=== PATIENT | male | born 1955 | race Caucasian/White ===

== ENCOUNTER 2016-08-07 17:46 | Emergency (ER) | payer MEDICARE, MEDICAID ==
[2016-08-07 18:02] VITALS: BP 145/116
[2016-08-07] MEDS ORDERED: Benzoin Compound STICK TOPICAL ONE (19:25)
--- NOTE | 2016-08-07 19:25 | UC ---
Laceration HPI - HPI Summary HPI Summary: hit the right side of his head on a wall wheile propelling his wheelchair to close to a corner--laceration above right eye brow - History Of Current Complaint Chief Complaint: UCLaceration Stated Complaint: HEAD INJURY Time Seen by Provider: 08/07/16 19:17 Hx Obtained From: Patient Hx From Patient Unobtainable Due To: Altered Mental Status - Cerebral PAlsey, profound MR Laceration Location: Face - above right eye brow Mechanism Of Injury: Blunt Trauma Onset/Duration: Sudden Onset, Lasting Days Severity: Mild - Allergies/Home Medications Allergies/Adverse Reactions: Allergies Allergy/AdvReac Type Severity Reaction Status Date / Time No Known Allergies Allergy Verified 08/07/16 18:02 PMH/Surg Hx/FS Hx/Imm Hx Previously Healthy: No - cerebral palsey, profound MR Endocrine History Of: Denies: Diabetes, Thyroid Disease, Hyperthyroidism, Hypothyroidism Cardiovascular History Of: Reports: Hypertension Denies: Cardiac Disorders, Pacemaker/ICD, Congestive Heart Failure, Deep Vein Thrombosis Respiratory History Of: Reports: Pneumonia Denies: COPD, Asthma, Pulmonary Embolism GI/ History Of: Denies: Gastroesophageal Reflux, Ulcer, Renal Disease Neurological History Of: Reports: Seizures - has about one major seizure per month Denies: TIA, CVA, Dementia, Migraine Psychological History Of: Denies: Anxiety, Depression, Bipolar Disorder, Schizophrenia Cancer History Of: Denies: Lung Cancer Other History Of: Negative For: Anticoagulant Therapy - Surgical History Surgical History: Yes Surgery Procedure, Year, and Place: abdominal surgery listed in pt record from [facility], no date, no place, no specific procedure listed - Family History Known Family History: Positive: None Family History: family history unkniwn PATIENT LIVES IN HOME FOR DD ADULTS - Social History Occupation: Disabled Lives: Assisted Living Alcohol Use: None Substance Use Type: None Smoking Status (MU): Never Smoked Tobacco - Immunization History Most Recent Influenza Vaccination: 2014 Most Recent Tetanus Shot: 10/07/08 Most Recent Pneumonia Vaccination: NEVER Review of Systems Constitutional: Negative Skin: Negative - cm laceration above right eye brown minimal oo, Other Eyes: Negative ENT: Negative Respiratory: Negative Cardiovascular: Negative Gastrointestinal: Negative Genitourinary: Negative Motor: Negative Neurovascular: Negative Musculoskeletal: Negative Neurological: Negative Psychological: Negative All Other Systems Reviewed And Are Negative: Yes Physical Exam Triage Information Reviewed: Yes Completion Of Physical Exam Limited Due To: Patient is uncooperative with exam Appearance: No Pain Distress, Ill-Appearing - chronic, Thin Vital Signs: Initial Vital Signs Temp 98.6 F 08/07/16 17:56 Pulse 72 08/07/16 17:56 Resp 18 08/07/16 17:56 BP 145/116 08/07/16 17:56 Pulse Ox 97 08/07/16 17:56 Vital Signs Reviewed: Yes Eye Exam: Normal Eyes: Positive: Conjunctiva Clear ENT Exam: Normal ENT: Positive: Normal ENT inspection, Hearing grossly normal, Pharynx normal, TMs normal. Negative: Nasal congestion, Nasal drainage, Tonsillar swelling, Tonsillar exudate, Trismus, Muffled/hoarse voice Neck exam: Normal Neck: Positive: Supple, Nontender, No Lymphadenopathy Respiratory Exam: Normal Respiratory: Positive: Chest non-tender, Lungs clear, Normal breath sounds, No respiratory distress, No accessory muscle use Cardiovascular Exam: Normal Cardiovascular: Positive: RRR, No Murmur, Pulses Normal, Brisk Capillary Refill Musculoskeletal Exam: Normal Musculoskeletal: Positive: Strength Intact, ROM Intact, No Edema Neurological Exam: Normal Neurological: Positive: Alert, Muscle Tone Normal - 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 Psychological Exam: Normal Skin Exam: Normal Skin: Positive: Other - 1 cm laceration above right eye brow Laceration Repair - Laceration Repair 1 Description: Linear Laceration Size After Repair: Length (cm) - 1 Modified For Repair: No Cleansing Completed Via Routine Prep: Yes Irrigation With Pressure Irrigation Device: Yes Closure Material: SteriStrips Re-Evaluation - Re-Evaluation First Eval Change: Improved - well approximated patient tolerated well Laceration Course/Dx - Course/Dx Course Of Treatment: follow blood pressure with pcp, allow steri strips to fall off on their own accourd re-check prn - Differential Dx - Laceration/Wound Differental Diagnoses: Hematoma, Laceration Provider Diagnoses: hemotoma, laceration about right eyebrom with excellent appromimation, follow with pcp re-cjheck prn Discharge - Discharge Plan Condition: Stable Disposition: HOME Patient Education Materials: Hypertension (ED), Steristrips (ED), Facial Laceration (ED) Referrals: Toño CONTRERAS,Darin Turner [Primary Care Provider] - 1 Week Additional Instructions: Tub bath only for 5 days avoid getting steri strips wet if possible
== END 2016-08-07 19:58 | disposition home or self-care (01) ==
LOC: UCEAST 17:46
DX: S01.111A Laceration without foreign body of right eyelid and periocular area, initial encounter (principal); W22.09XA Striking against other stationary object, initial encounter
CPT/HCPCS: 12001; 99211; G0463

== ENCOUNTER 2016-09-29 08:25 | Emergency (ER) | payer MEDICARE, MEDICAID ==
[2016-09-29 08:41] VITALS: BP 96/60
--- NOTE | 2016-09-29 09:25 | UC ---
Respiratory Complaint HPI - History of Current Complaint Chief Complaint: UCRespiratory Stated Complaint: RESP COMPLAINT Hx Obtained From: Family/Leather Shaver Hx From Patient Unobtainable Due To: Other - MR, disable Onset/Duration: Gradual Onset - choked on milk few days ago and has been coughing since. worse sometimes than others. caregiver is good historian for patient-has cared for him a long time. states he can swallow pills (all at once) , but is refusing food since yesterday. had fever 99 at house. Severity Initially: Mild Severity Currently: Moderate Character: Cough: Nonproductive Aggravating Factors: Recumbent Position Associated Signs And Symptoms: Positive: Fever. Negative: Wheezing, Hemoptysis , Nasal Congestion - Allergies/Home Medications Allergies/Adverse Reactions: Allergies Allergy/AdvReac Type Severity Reaction Status Date / Time No Known Allergies Allergy Verified 09/29/16 08:41 Home Medications: Home Medications Guaifenesin [Tussin Mucus & Chest Saad] 100 mg PO PRN 09/29/16 [History] PMH/Surg Hx/FS Hx/Imm Hx Previously Healthy: Yes Cardiovascular History: Hypertension Respiratory History: Other - aspiration pneumonia mult times Other Respiratory History: aspiration pneumonia Neurological History: Seizures, Other - MR Other Neurological History: MR Other History Of: Negative For: Anticoagulant Therapy - Surgical History Surgical History: Yes Surgery Procedure, Year, and Place: abdominal surgery listed in pt record from [facility], no date, no place, no specific procedure listed - Family History Known Family History: Positive: None Family History: family history unkniwn PATIENT LIVES IN HOME FOR DD ADULTS - Social History Alcohol Use: None Substance Use Type: None Smoking Status (MU): Never Smoked Tobacco - Immunization History Most Recent Influenza Vaccination: 2014 Most Recent Tetanus Shot: 10/07/08 Most Recent Pneumonia Vaccination: NEVER Review of Systems Constitutional: Fever Skin: Negative Respiratory: Cough Cardiovascular: Negative Gastrointestinal: Negative Neurological: Other - seems more tired Psychological: Negative All Other Systems Reviewed And Are Negative: Yes Physical Exam Triage Information Reviewed: Yes Completion Of Physical Exam Limited Due To: Other - MR, disabled, non-verbal Appearance: Well-Appearing, No Pain Distress, Well-Nourished Vital Signs: Initial Vital Signs Temp 97.2 F 09/29/16 08:29 Pulse 80 09/29/16 08:29 Resp 18 09/29/16 08:29 BP 96/60 09/29/16 08:29 Pulse Ox 97 09/29/16 08:29 ENT: Positive: Pharynx normal, Other: - no F/B in OP Respiratory: Positive: Lungs clear, Normal breath sounds, No respiratory distress, Other: - diff exam as pt will not take a deep breath Cardiovascular Exam: Normal Abdomen Description: Positive: Nontender Psychological: Positive: Other: - metal spray operator 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 for pt UC Diagnostic Evaluation - Laboratory O2 Sat by Pulse Oximetry: 97 Respiratory Course/Dx - Differential Dx/Diagnosis Differential Diagnosis/HQI/PQRI: Airway Obstruction, Foreign Body, Aspiration, Lower Resp Infection, Other - URI Provider Diagnoses: aspiration pneumonia Discharge - Discharge Plan Condition: Stable Disposition: HOME Prescriptions: Ciprofloxacin TAB* [Cipro 500 MG TAB*] 500 mg PO BID #20 tab Patient Education Materials: Pneumonia (ED) Referrals: Toño CONTRERAS,Darin Turner [Primary Care Provider] - 2 Days (recheck breathing) Additional Instructions: encourage clear fluids report to ER if breathing worsens or other symptoms occur
[2016-09-29] MEDS ORDERED: Ciprofloxacin TAB* 500 MG PO ONE (09:31)
== END 2016-09-29 09:50 | disposition home or self-care (01) ==
LOC: UCEAST 08:25
DX: J69.0 Pneumonitis due to inhalation of food and vomit (principal); T17.928A Food in respiratory tract, part unspecified causing other injury, initial encounter; X58.XXXA Exposure to other specified factors, initial encounter; Y93.89 Activity, other specified; Y92.199 Unspecified place in other specified residential institution as the place of occurrence of the external cause; Y99.9 Unspecified external cause status; I10 Essential (primary) hypertension
CPT/HCPCS: 99212; A9270-GY; G0463

== ENCOUNTER 2016-10-02 11:41 | Emergency (ER) | payer MEDICARE, MEDICAID ==
[2016-10-02 11:48] VITALS: BP 124/77
--- NOTE | 2016-10-02 13:24 | UC ---
Complaint Male HPI - HPI Summary HPI Summary: This is a 61 yo gentleman with severe MR, sz d/o and cerebral palsy who presented with blood at the tip of his urethra. This was first noted this am. No recent fever. No c/os of abd pain or vomiting. No changes in behavior. Patient is incontinent of urine at baseline, no recent catheterizations completed. He was recently seen and treated for PNA and is currently being treated with Cipro. - History of Current Complaint Chief Complaint: UCGU Stated Complaint: PERSONAL - Allergies/Home Medications Allergies/Adverse Reactions: Allergies Allergy/AdvReac Type Severity Reaction Status Date / Time No Known Allergies Allergy Verified 09/29/16 08:41 PMH/Surg Hx/FS Hx/Imm Hx Previously Healthy: No - CP, sz d/o, profound MR Other History Of: Negative For: Anticoagulant Therapy - Surgical History Surgical History: Yes Surgery Procedure, Year, and Place: abdominal surgery listed in pt record from [facility], no date, no place, no specific procedure listed - Family History Known Family History: Positive: None Family History: family history unkniwn PATIENT LIVES IN HOME FOR DD ADULTS - Social History Alcohol Use: None Substance Use Type: None Smoking Status (MU): Never Smoked Tobacco - Immunization History Most Recent Influenza Vaccination: 2014 Most Recent Tetanus Shot: 10/07/08 Most Recent Pneumonia Vaccination: NEVER Review of Systems Constitutional: Negative Skin: Negative Eyes: Negative ENT: Negative Respiratory: Negative Cardiovascular: Negative Gastrointestinal: Negative Genitourinary: Hematuria Motor: Negative Neurovascular: Negative Musculoskeletal: Negative Neurological: Negative Psychological: Negative All Other Systems Reviewed And Are Negative: Yes Physical Exam Triage Information Reviewed: Yes Completion Of Physical Exam Limited Due To: Altered Mental Status - profound MR , alert, but non-verbal Vital Signs: Initial Vital Signs Temp 97.8 F 10/02/16 11:43 Pulse 56 10/02/16 11:43 Resp 15 10/02/16 11:43 BP 124/77 10/02/16 11:43 Pulse Ox 99 10/02/16 11:43 Respiratory: Positive: Chest non-tender, Lungs clear Cardiovascular: Positive: RRR, No Murmur Abdomen Description: Positive: Nontender, Soft. Negative: CVA Tenderness (R), CVA Tenderness (L) - Additional Comments Circusized penis with large uretheral opening. Pooled, dark blood at the tip of the urethera, no clear injury noted. No surrounding lesions or ecchymosis. Non tender with manipulation. Complaint Male Course/Dx - Course Course Of Treatment: This is a 61 yo male with profound MR, sz d/o and profound MR who presented with c/o uretheral bleeding. This does not appear to be true hematuria, catherization avoided as source appeared to be within the urethera. No recent catheterizations or other manipulation to explain symptoms. Normal urine output. Recommend monitoring, he is already on Cipro that would cover most urine pathogens. Consider uretheral lesion if no recent trauma. If bleeding continues then scope with urology is the appropriate next step. - Differential Dx/Diagnosis Differential Diagnosis/HQI/PQRI: Cancer, Prostatitis, Urinary Tract Infection Provider Diagnoses: 1. Uretheral bleeding of unclear etiology Discharge - Discharge Plan Condition: Stable Disposition: HOME Patient Education Materials: Hematuria (ED) Referrals: Toño CONTRERAS,Darin Turner [Primary Care Provider] - If Needed Additional Instructions: Activity: As tolerated Instructions: 1. Monitor for continued bleeding 2. Monitor for decreased urine output that may indicate a clot 3. If bleeding continues, recommend urology consultation
== END 2016-10-02 13:21 | disposition home or self-care (01) ==
LOC: UCEAST 11:41
DX: N36.8 Other specified disorders of urethra (principal); G40.909 Epilepsy, unspecified, not intractable, without status epilepticus; G80.9 Cerebral palsy, unspecified; F73 Profound intellectual disabilities
CPT/HCPCS: 99212; G0463

== ENCOUNTER 2017-10-05 12:53 | Emergency (ER) | payer MEDICARE, MEDICAID ==
[2017-10-05 13:29] LABS: ABS Basophils 0 10^3/ul (0-0.2); ABS Eosinophils 0.3 10^3/ul (0-0.6); ABS Monocytes 0.4 10^3/ul (0-0.8); ABS Neutrophils 2.3 10^3/ul (1.5-7.7); ABS Nucleated RBC 0 10^3/ul; Eosinophil % 7.3 % (0-6); Hematocrit 39 % (42-52); Hemoglobin 13.2 g/dl (14.0-18.0); Mean Corpuscular HGB Conc 34 g/dl (31-36); Mean Corpuscular Hemoglobin 31 pg (27-31); Mean Corpuscular Volume 93 fL (80-94); Mean Platelet Volume 7.1 um3 (7.4-10.4); Nucleated Red Blood Cells % 0.1; Platelet Count 261 10^3/ul (150-450); Red Blood Count 4.23 10^6/ul (4.00-5.40); Red Cell Distribution Width 13 % (10.5-15); White Blood Count 4.1 10^3/ul (3.5-10.8)
[2017-10-05 13:46] LABS: EGFR Non-African American 91.6 (>60)
--- NOTE | 2017-10-05 13:47 | ED ---
Neurological HPI - HPI Summary HPI Summary: This is danny Garduno documenting for attending Cindy Healy MD. LEVEL 5 CAVEAT The patient is non-verbal and is currently sleeping. The caregiver at bedside reports he usually sleeps for hours after his seizures. This patient is a 62 year old M BIBA to ED with a chief complaint of 2 grand mal seizures since earlier today. He usually gets seizures once a month but had 3 this week so far; the third one occurred a couple days ago. He is on medication for his seizures. These episodes today were witnessed but not by the caregiver currently at bedside. The CC is described as lasting longer than usual and unusually violent from baseline. The patient rates the pain 0/10 in severity. Symptoms aggravated by nothing. Symptoms alleviated by spontaneous resolution. Caregiver reports difficulty breathing s/p seizures and unusually low BP. - History of Current Complaint Chief Complaint: EDSeizure Stated Complaint: SEIZURES Time Seen by Provider: 10/05/17 13:06 Hx Obtained From: Patient Hx From Patient Unobtainable Due To: Other - patient is currently sleeping; caregiver reports he usually sleeps for hours after seizure episodes; patient at baseline is active but non-verbal Onset/Duration: Sudden Onset, Started hours ago, Resolved Timing: Intermittent Episodes Lasting: - longer than usual; usually only has one a month, but has had 3 this week so far, two of which happened today Current Severity: None Number of Seizures: 2 - today, 1 earlier this week Pain Intensity: 0 Pain Scale Used: 0-10 Numeric Character: Other: - more violent than usual, lasted longer than usual Aggravating: Nothing Alleviating: Spontanious Resolution Associated Signs and Symptoms: Positive: Seizure - Caregiver reports difficulty breathing s/p seizures and unusually low BP. - Allergy/Home Medications Allergies/Adverse Reactions: Allergies Allergy/AdvReac Type Severity Reaction Status Date / Time No Known Allergies Allergy Verified 10/05/17 13:00 Home Medications: Home Medications Ammonium Lactate 12 % EX BID PRN 10/05/17 [History Confirmed 10/05/17] Aspirin EC TAB* [Ecotrin EC Low Dose 81 MG*] 81 mg PO DAILY 10/05/17 [History Confirmed 10/05/17] Bisacodyl SUPP* [Dulcolax Supp*] 10 mg .SEE ORDER PRN 10/05/17 [History] Carbamide Peroxide 6.5% OTIC* [DEBROX 6.5% Otic*] 5 drop BOTH EARS SEE INSTRUCTIONS 10/05/17 [History Confirmed 10/05/17] Clobetasol 0.05% OINT* 1 applic TOPICAL BID 10/05/17 [History Confirmed 10/05/17 ] Neomycin/Bacitracin/Polymyxinb [Triple Antibiotic Ointment] 1 each TOPICAL BID PRN 10/05/17 [History Confirmed 10/05/17] PHENobarbital TAB(*) 90 mg PO BEDTIME 10/05/17 [History Confirmed 10/05/17] Xanthan Gum [Simplythick] 1,815 gm PO DAILY PRN 10/05/17 [History Confirmed ] Zinc Oxide [Desitin] 13 % EX BID PRN 10/05/17 [History Confirmed 10/05/17] carBAMazepine ER TAB(*) [TEGretol Xr TAB(*)] 600 mg PO BID 10/05/17 [History Confirmed 10/05/17] PMH/Surg Hx/FS Hx/Imm Hx Endocrine/Hematology History: Denies: Hx Anticoagulant Therapy, Hx Diabetes, Hx Thyroid Disease, Hx Anemia , Hx Unexplained Bleeding Cardiovascular History: Reports: Hx Hypertension Denies: Hx Aneurysm, Hx Angina, Hx Angioplasty, Hx Auto Implanted Cardiovert Defib, Hx Cardiac Arrest, Hx Cardiomegaly, Hx Congenital Heart Disease, Hx Congestive Heart Failure, Hx Coronary Artery Disease, Hx Deep Vein Thrombosis, Hx Hypercholesterolemia, Hx Hypotension, Hx Pacemaker/ICD, Hx Peripheral Vascular Disease, Hx Rheumatic Fever, Hx Syncope, Hx Valvular Heart Disease Respiratory History: Reports: Hx Pneumonia Denies: Hx Asthma, Hx Chronic Bronchitis, Hx Chronic Obstructive Pulmonary Disease (COPD), Hx Cystic Fibrosis, Hx Lung Cancer, Hx Pleural Effusion, Hx Pulmonary Edema, Hx Pulmonary Embolism, Hx Seasonal Allergies, Hx Sleep Apnea, Other Respiratory Problems/Disorders GI History: Reports: Other GI Disorders - hx of aspiration pneumonia Denies: Hx Ulcer History: Denies: Hx Renal Disease Musculoskeletal History: Reports: Other Musculoskeletal History - CEREBRAL PALSY Denies: Hx Arthritis, Hx Back Problems, Hx Bursitis, Hx Congenital Bone Abnormalities, Hx Fibromyalgia, Hx Gout, Hx Orthopedic Injury, Hx Osteoporosis, Hx Scoliosis, Hx Tendonitis Sensory History: Denies: Hx Cataracts, Hx Contacts or Glasses, Hx Eye Injury, Hx Eye Prosthesis, Hx Glaucoma, Hx Macular Degeneration, Hx Vision Problem, Hx Deafness , Hx Hearing Aid, Hx Hearing Problem, Other Sensory Impairments Opthamlomology History: Denies: Hx Cataracts, Hx Contacts or Glasses, Hx Eye Injury, Hx Eye Prosthesis, Hx Glaucoma, Hx Macular Degeneration, Hx Vision Problem, Other Sensory Impairments Neurological History: Reports: Hx Developmental Delay - PROFOUND MR, CEREBRAL PALSY, Hx Seizures - has about one major seizure per month, Other Neuro Impairments/Disorders - CEREBRAL PALSY Denies: Hx Dementia, Hx Headaches, Hx Migraine, Hx Spinal Cord Injury, Hx Transient Ischemic Attacks (TIA) Psychiatric History: Reports: Other Psychiatric Issues/Disorders - profound mental retardation Denies: Hx Anxiety, Hx Attention Deficit Hyperactivity Disorder, Hx Eating Disorder, Hx Depression, Hx Panic Disorder, Hx Post Traumatic Stress Disorder, Hx Inpatient Treatment, Hx Community Mental Health Tx, Hx Schizophrenia, Hx Bipolar Disorder, Hx Suicide Attempt, Hx Substance Abuse - Surgical History Surgery Procedure, Year, and Place: abdominal surgery listed in pt record [facility], no date, no place, no specific procedure listed Hx Anesthesia Reactions: No - Immunization History Date of Tetanus Vaccine: 10/07/2008 Date of Influenza Vaccine: 01/04/2011 Infectious Disease History: Unable to Obtain/Confirm Infectious Disease History: Denies: Hx Clostridium Difficile, Hx Hepatitis, Hx Human Immunodeficiency Virus (HIV), Hx of Known/Suspected MRSA, Hx Shingles, Hx Tuberculosis, Hx Known/ Suspected VRE, Hx Known/Suspected VRSA, History Other Infectious Disease, Traveled Outside the in Last 30 Days - Family History Known Family History: Positive: Other Family History: family history unkniwn PATIENT LIVES IN HOME FOR DD ADULTS - Social History Alcohol Use: None Substance Use Type: Reports: None Smoking Status (MU): Never Smoked Tobacco Review of Systems Positive: Other - unusually low BP Positive: Other - Caregiver reports difficulty breathing s/p seizures Neurological: Other - 2 seizures today, 1 earlier this week, unusually violent and longer than usual; the patient is currently sleeping All Other Systems Reviewed And Are Negative: No Physical Exam - Summary Physical Exam Summary: GENERAL: Patient is a well-developed and nourished MALE who is lying comfortable in the stretcher. Patient is not in any acute respiratory distress. The patient is currently sleeping; caregiver reports he usually sleeps for hours after seizure episodes. HEAD AND FACE: Normocephalic EYES: PERRLA, EOMI x 2. EARS: Hearing grossly intact. MOUTH: Oropharynx within normal limits. NECK: Supple, trachea is midline, no adenopathy, no JVD, no carotid bruit. CHEST: Symmetric, no tenderness at palpation LUNGS: Clear to auscultation bilaterally. No wheezing or crackles. CVS: Regular rate and rhythm, S1 and S2 present, no murmurs or gallops appreciated. ABDOMEN: Soft, non-tender. Bowel sounds are normal. No abdominal abnormal pulsations. EXTREMITIES: Full ROM in all major joints, no edema, no cyanosis or clubbing. NEURO: Hard to assess because he is asleep. SKIN: Dry and warm Triage Information Reviewed: Yes Vital Signs On Initial Exam: Initial Vitals Temp Pulse Resp BP Pulse Ox 98.7 F 83 14 98/73 95 10/05/17 12:56 10/05/17 12:56 10/05/17 12:56 10/05/17 12:56 10/05/17 12:56 Vital Signs Reviewed: Yes Completion Of Physical Exam Limited Due To: Level 5 - patient is currently sleeping; caregiver reports he usually sleeps for hours after seizure episodes; patient at baseline is active but non-verbal Diagnostics - Vital Signs Vital Signs Temp Pulse Resp BP Pulse Ox 10/05/17 13:00 86 12 95 10/05/17 12:58 83 14 98/73 95 10/05/17 12:57 86 13 94 10/05/17 12:56 98.7 F 83 14 98/73 95 - Laboratory Lab Results: Lab Results 10/05/17 Range/Units 13:19 WBC 4.1 (3.5-10.8) 10^3/ul RBC 4.23 (4.00-5.40) 10^6/ul Hgb 13.2 L (14.0-18.0) g/dl Hct 39 L (42-52) % MCV 93 (80-94) fL MCH 31 (27-31) pg MCHC 34 (31-36) g/dl RDW 13 (10.5-15) % Plt Count 261 (150-450) 10^3/ul MPV 7.1 L (7.4-10.4) um3 Neut % (Auto) 56.2 (38-83) % Lymph % (Auto) 25.0 (25-47) % Morrow % (Auto) 10.4 H (0-7) % Eos % (Auto) 7.3 H (0-6) % Baso % (Auto) 1.1 (0-2) % Absolute Neuts (auto) 2.3 (1.5-7.7) 10^3/ul Absolute Lymphs (auto) 1.0 (1.0-4.8) 10^3/ul Absolute Monos (auto) 0.4 (0-0.8) 10^3/ul Absolute Eos (auto) 0.3 (0-0.6) 10^3/ul Absolute Basos (auto) 0 (0-0.2) 10^3/ul Absolute Nucleated RBC 0 10^3/ul Nucleated RBC % 0.1 Result Diagrams: 10/05/17 13:19 10/05/17 13:19 Lab Statement: Any lab studies that have been ordered have been reviewed, and results considered in the medical decision making process. - Radiology CXR Radiology Interpretation Completed By: Radiologist - Expiratory exam with subsegmental atelectasis limiting assessment. No compelling evidence for pneumonia. ED physiican has reviewed this radiology report. - EKG 1304 Cardiac Rate: NL - 91 BPM EKG Rhythm: Sinus Rhythm EKG Interpretation: T wave in anterior leads EKG Comparison: No Significant Change - from 09/13/15 Re-Evaluation - Re-Evaluation First Eval Re-Evaluation Time: 14:54 Comment: The patient is awake and at his baseline. Course/Dx - Course Assessment/Plan: This patient is a 62 year old M BIBA to ED with a chief complaint of 2 back to back grand mal seizures since earlier today. His workup is remarkable for sodium of 131. CXR shows no evidence for PNA. Levels are normal for his antiepileptic medicine. UA concerning for UTI. The patient was given 1L of IV fluids. I discussed the case with Dr. Kyle and based on what I told her, she feels that the patient can be discharged home with instructions to follow up with neurology. Dr. Kyle reviewed the record and saw that he has breakthrough seizures. Nurse told caregiver at [facility] about discharge plan and they agree. He is hemodynamically stable upon discharge. Strict return precautions given. - Differential Dx Differential Diagnoses Neuro: Positive: Other - UTI, seizure - Diagnoses Provider Diagnoses: Seizure, UTI (urinary tract infection) - Physician Notifications Discussed Care Of Patient With: Ayleen Kyle Time Discussed With Above Provider: 13:55 Instructed by Provider To: Other - Consulted Dr. Kyle at [phone] who will look more into the patient's hx and then see the patient in the ED. Consulted Dr. Kyle at [phone] who, after looking at the patient's hx, says to add ammonia level to his orders. Discharge - Sign-Out/Discharge Documenting (check all that apply): Patient Departure - Discharge Plan Condition: Stable Disposition: HOME Prescriptions: Cephalexin CAP* [Keflex CAP*] 500 mg PO QID #20 cap Patient Education Materials: Urinary Tract Infection in Men (ED), Recurrent Seizures in Adults (ED) Referrals: Ayleen Kyle MD [Medical Doctor] - (Follow up with Dr. Kyle in 1-3 days. ) Additional Instructions: RETURN TO THE EMERGENCY DEPARTMENT FOR CHANGING OR WORSENING SYMPTOMS.
[2017-10-05] MEDS ORDERED: NS 0.9% 1000 ML* 1,000 ML IV ONE (14:22)
--- NOTE | 2017-10-05 16:10 | RAD ---
Indication: Seizure. Cough. Comparison: June 18, 2014 Technique: Upright AP 1505 hours Report: Suboptimal inspiration with crowding of the pulmonary markings and subsegmental atelectasis. No focal disproportionate pulmonary opacity to favor pneumonia. Negative for pleural effusions or pneumothorax. Unremarkable heart, central pulmonary vasculature, and mediastinal contours accounting for suboptimal inspiration and rightward rotation. IMPRESSION: #. Expiratory exam with subsegmental atelectasis limiting assessment. #. No compelling evidence for pneumonia.
[2017-10-05 16:43] LABS: Urine Appearance Clear; Urine Blood 2+ (Negative); Urine Color Straw; Urine Ketones Negative (Negative); Urine Protein Negative (Negative); Urine Red Blood Cell 3+(>10/hpf) (Absent); Urine Specific Gravity 1.006 (1.010-1.030); Urine Urobilinogen Negative (Negative); Urine White Blood Cell 3+(>20/hpf) (Absent)
[2017-10-05] MEDS ORDERED: Cephalexin CAP* 500 MG PO ONE (16:54)
[2017-10-05 17:17] VITALS: BP 122/93
--- NOTE | 2017-10-08 07:00 | PN ---
Progress Note - Progress Note Date of Service: 10/05/17 Note: Pt. seen in ER 10/05 and dx with a UTI and started on Keflex. Final culture today is growing 10-25K proteus susceptible to Keflex. No change in treatment plan needed at this time.
== END 2017-10-05 17:45 | disposition home or self-care (01) ==
LOC: ED 12:53
DX: G40.909 Epilepsy, unspecified, not intractable, without status epilepticus (principal); N39.0 Urinary tract infection, site not specified; B96.4 Proteus (mirabilis) (morganii) as the cause of diseases classified elsewhere
CPT/HCPCS: 36415; 71045; 80053; 80156; 80184; 81003; 81015; 82140; 83735; 84484; 85025; 87077; 87086; 87186; 93005; 96360; 99283; A9270-GY

== ENCOUNTER 2018-05-03 07:52 | Emergency (ER) | payer MEDICARE, MEDICAID ==
[2018-05-03] MEDS ORDERED: EPINEPHrine SYR 0.1MG/ML* SYRINGE ONE (08:07)
--- NOTE | 2018-05-03 08:12 | ED ---
Cardiac Resuscitation - HPI Summary HPI Summary: This patient is a 63 year old male brought in by EMS and [place] [facility] to [facility] after he was found in cardiac arrest at 0600 this morning. The last bed check was at 0400 and the patient was at baseline at this time, this was the last known well time. The patient has been in arrest for 2 hours LEGAL SUPPORT ASSISTANT and CPR was done by staff until EMS arrived. EMS placed auto pulse on pt, he was given 3 epi, and one bicarb. He has repeatedly lost pulse between treatments and is on a norepinephrine drip currently. ABC alert was called at 0742 in the ED The patient arrives at 0751 with feces on his left leg. He is intubated and bagged with fixed dilated pupils. Pt has been coding since 0655 by EMS, Respiratory staff is at bedside on arrival. Dr Duran is at bedside at 0801. The patient has palpable carotid pulses on arrival shortly after the patient was pulses. CPR was re-initiated and was given Epi. Patient went into V-tach and was shocked and he went into junctional rhythm but still has no pulses. CPR was continued but he remained pulseless. [address] Healy have made a joint decision and the pt was declared . At this time his pupils remained fixed and dilated with no corneal reflex. LEVEL 5 CAVEAT: Exam limited due to extremis. - History of Current Complaint Stated Complaint: ABC ALERT Hx Obtained From: EMS Onset/Duration: Minutes/Hours: - see hpi Arrest Witnessed: No Down-time Before Basic Life Support Initiated: Unknown - Allergies/Home Medications Allergies/Adverse Reactions: Allergies Allergy/AdvReac Type Severity Reaction Status Date / Time No Known Allergies Allergy Verified 10/05/17 13:00 - Past Medical History Past Medical History: Unobtainable Due to Extremis - Family History Family History: Unobtainable Due to Extremis - Social History Social History: Unobtainable Due to Extremis - Review of Systems Review of Systems: Unobtainable Due to Extremis Physical Examination - Summary Physical Exam Summary: GENERAL: Unconscious EYES: Fixed and dilated on arrival MOUTH: Endotracheal tube in place NECK: faint carotid pulse on arrival CHEST: Symmetric rise on bagging LUNGS: vented Breath sound ABDOMEN: distended with surical scar C/D/I EXTREMITIES: no edema - Physical Examination Triage Information Reviewed: Yes Completion Of Physical Exam Limited Due To: Extremis Diagnostics - Laboratory Result Diagrams: 02/17/19 08:11 Lab Statement: Any lab studies that have been ordered have been reviewed, and results considered in the medical decision making process. - EKG 0751 Cardiac Rate: Other Rate EKG Rhythm: Sinus Rhythm - junctional rhythm at 54 BPM Summary of EKG Findings: RBBB, ST depression seen in v2-v5 Cardiac Resus. Course/Dx - Course Assessment/Plan: his patient is a 63 year old male brought in by EMS and [place] [facility] to [facility] after he was found in cardiac arrest at 0600 this morning. The last bed check was at 0400 and the patient was at baseline at this time, this was the last known well time. The patient has been in arrest for 2 hours LEGAL SUPPORT ASSISTANT and CPR was done by staff until EMS arrived. EMS placed auto pulse on pt, he was given 3 epi, and one bicarb. He has repeatedly lost pulse between treatments and is on a norepinephrine drip currently. ABC alert was called at 0742 in the ED The patient arrives at 0751 with feces on his left leg. He is intubated and bagged with fixed dilated pupils. Pt has been coding since 0655 by EMS, Respiratory staff is at bedside on arrival. Dr Duran is at bedside at 0801. The patient has palpable carotid pulses on arrival shortly after the patient was pulses. CPR was re-initiated and was given Epi. Patient went into V- tach and was shocked and he went into junctional rhythm but still has no pulses. CPR was continued but he remained pulseless. [address] Healy have made a joint decision and the pt was declared . At this time his pupils remained fixed and dilated with no corneal reflex. Corner was notified and an Autopsy will be performed. - Diagnoses Provider Diagnoses: Cardiac arrest - Provider Notifications Discussed Care Of Patient With: Nicole Marquez Time Discussed With Above Provider: 09:44 Instructed by Provider To: Other - I informed the service coordinator elderly facility of the patient. - Critical Care Time Critical Care Time: 30-74 min Discharge - Sign-Out/Discharge Documenting (check all that apply): Patient Departure - Patient Received Moderate/Deep Sedation with Procedure: No - Discharge Plan Condition: Disposition: Referrals: Toño CONTRERAS,Drain Turner [Primary Care Provider] - - Billing Disposition and Condition Condition: Disposition: - Attestation Statements Document Initiated by Scribe: Yes Documenting Scribe: Artemio Staples Provider For Whom Scribe is Documenting (Include Credential): Cindy Healy MD Scribe Attestation: IArtemio , scribed for Cindy Healy MD on 05/04/18 at 1124. Scribe Documentation Reviewed: Yes Provider Attestation: The documentation as recorded by the Artemio delgado accurately reflects the service I personally performed and the decisions made by me, Cindy Healy MD Status of Scribe Document: Viewed
[2018-05-03 08:27] VITALS: BP 0/0
[2018-05-03 08:32] LABS: Activated Partial Thrombo Time 50.3 seconds (26.0-36.3); INR 0.96 (0.77-1.02)
[2018-05-03 08:35] LABS: Albumin 3.1 g/dL (3.2-5.2); Albumin/Globulin Ratio 1.3 (1-3); BUN/Creatinine Ratio 11.6 (8-20); Calcium 8.2 mg/dL (8.6-10.3); EGFR African American 59.2 (>60); EGFR Non-African American 48.9 (>60); Globulin 2.3 g/dL (2-4); Magnesium 2.5 mg/dL (1.9-2.7); Total Bilirubin 0.3 mg/dL (0.2-1.0); Total Protein 5.4 g/dL (6.4-8.9)
[2018-05-03 08:40] LABS: Troponin I 0.68 ng/mL (<0.04)
[2018-05-03 09:08] LABS: Potassium 5.1 mmol/L (3.5-5.0)
== END 2018-05-03 08:11 | disposition expired ==
LOC: ED 07:52
DX: I46.9 Cardiac arrest, cause unspecified (principal)
CPT/HCPCS: 36415; 80053; 83735; 84484; 85379; 85610; 85730; 87040; 92960; 93005; 99285; J0171